=== PATIENT | male | born 1930 | race African-American/Black ===

== ENCOUNTER → 2016-03-19 | Day surgery (SDC) | payer MEDICARE ==
[2013-02-16 08:05] VITALS: BMI 25.0
[~2016-03-19] MED LIST: FENTANYL 100 MCG/2 ML VIAL IV ONE; FENTANYL 100 MCG/2 ML VIAL IV PRN; HYDROmorphone 1 MG INJECTION IV PRN; LABETALOL 20 MG/4 ML SYRINGE IV PRN; LIDOCAINE 100 MG PFS IV ONE; LIDOCAINE 2% JELLY UROJET ONE; Levofloxacin 500 mg/100 ml D5W 500 MG/100 ML RTU IV ONE; MEPERIDINE 25 MG/ML TUBEX IV PRN; ONDANSETRON HCL 4 MG ODT TAB PO PRN; ONDANSETRON HCL 4 MG/2 ML VIAL IV PRN; PROPOFOL 200 MG/20 ML VIAL IV ONE; hydrALAZINE 20 MG/ML VIAL IV PRN
--- NOTE | 2016-03-19 07:56 | HIM.ANES ---
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) Consented Procedure: CYSTOSCOPY,CUP BLADDER BIOPSY FULGERATION - Focused Review of Systems Cardiac History: Yes: Hx Hypertension, Hx Cardiac Catheterization, Hx Cardiac Disorders, Hx Abnormal Cholesterol/Hyperlipidemia No: Hx Angina HEENT: Yes: Removable Dental Work, Cataracts (S/P REMOVAL), Cataract Removal, Hx Vision Problem (WEARS GLASSES), Other HEENT Problems Hx Other HEENT Surgery: T&A Respiratory: Yes: Hx Snoring No: Hx Asthma, Hx Emphysema Gastrointestinal: Yes: Hx Gastroesophageal Reflux Disease, Hx Gastrointestinal Disorders, Hx Diverticulosis (per colonoscopy), Hx Colonoscopy (2008) Genitourinary: Yes: Hx Renal Disease (STAGE 3 CKD) Neurological/Musculoskeletal: No: HX Cerebrovascular Accident, Hx Transient Ischemic Attacks (TIA), Hx Neurological Disorders Psychological: Yes Hx Depression, No Hx Mental/Emotional Disorders Endocrine: Yes: Hx Diet Controlled Diabetes (09/2015 HGB A1C 6.9) Blood/Autoimmune: Yes: Hx Anemia (IRON DEFICIENCY) No: Hx AIDS, Hx Hepatitis (type) Smoking Status: Former smoker Surgical History: Yes: T&A Other Surgical History: T&A FEM POP hemorrhoidectomy 1975 CYSTOSCOPY BLADDER BX 07/10/2014 - Focused Physical Exam NPO since: 03/18/16 1730 Mallampati: Class II Thyromental Distance: Greater than 3 Neck: Full Range of Motion Dental: Edentulous Cardiovascular/Chest: Normal Respiratory: Lungs clear Any problems with anesthesia, including nausea and vomiting?: No Any relatives with a history of Malignant Hyperthermia?: No Does patient have a history of Malignant Hyperthermia?: No Beta Luis given (if appropriate): N/A Does the patient have a history of Motion Sickness-: No Other: Allergies Allergy/AdvReac Type Severity Reaction Status Date / Time No Known Allergies Allergy Verified 03/19/16 07:34 Home Medications Medication Instructions Recorded Last Taken Type Diltiazem HCl [Cardizem Cd] 240 mg PO DAILY 02/14/13 03/19/16 05:30 History Lisinopril [Prinivil] 40 mg PO DAILY 02/14/13 03/19/16 05:30 History Finasteride 5 mg PO DAILY 09/04/13 03/18/16 08:00 History Tamsulosin HCl [Flomax] 0.4 mg PO DAILY 09/04/13 03/18/16 19:00 History Aspirin [Aspirin EC] 81 mg PO DAILY 07/09/14 03/12/16 History Repaglinide 0.5 mg PO DAILY 07/09/14 03/18/16 08:00 History Iron [Niferex-150] 150 mg PO BID 01/29/15 03/18/16 20:00 History Rosuvastatin Calcium [Crestor] 20 mg PO DAILY 03/16/16 03/18/16 08:00 History Cilostazol [Pletal] 100 mg PO BID 03/17/16 03/12/16 History Height and Weight Patient's height 5 ft 6 in Patient's weight 70.307 kg BMI 25.0 Vital Signs Temperature 97.4 F L 03/19/16 07:16 Pulse Rate 61 03/19/16 07:16 Respiratory Rate 18 03/19/16 07:16 Blood Pressure 149/60 03/19/16 07:16 Pulse Oxygen Saturation 99 03/19/16 07:16 METS - Level of Activity: Climbing stairs(1 flight),walking level ground, running short distance - Anesthetic Plan Anesthesia Type: General ASA Class: 3 -: I have examined this patient and reviewed the medical record. The patient has been assessed prior to anesthesia. Risks and benefits of anesthesia and anesthetic technique options have been discussed and all questions answered. The patient accepts the risk and desires me to proceed with the planned anesthetic.
[2016-03-19 09:25] VITALS: TEMP 97.1
--- NOTE | 2016-03-19 09:27 | HIMOPRPT ---
PROCEDURE: DATE OF PROCEDURE: 03/19/16 PREOPERATIVE DIAGNOSIS: Recurrent superficial bladder tumor . POSTOPERATIVE DIAGNOSIS: Recurrent superficial bladder tumor . PROCEDURE PERFORMED: Cystoscopy and fulguration of bladder lesions. SURGEON: Juan Luis Sanabria MD ANESTHESIA USED: IV sedation /MAC. INDICATION FOR PROCEDURE: The patient is a 85 BLACK M with a history of recurrent superficial bladder tumor. Surveillance cystoscopy revealed recurrence. . The patient is brought in now for cystoscopy and fulguration of bladder lesions . PROCEDURE IN DETAIL: The patient was brought into the operating room, placed on the table in the supine position. After adequate IV sedation/MAC anesthesia was achieved, the patient was carefully placed in dorsal lithotomy and the perineum prepped and draped in sterile fashion for the performance of cystoscopy. 2% xylocaine jelly was instilled in the urethra for local anesthesia. Initially, the 23-Hungarian scope was passed under direct vision into the bladder. Inspection of the bladder revealed normal ureteral orifices and trigone. No gross lesions were noted. After the bladder was inspected with 30 and 70 degree lenses , small papillary lesions were noted in the posterior wall and at the bladder neck. These were small projections on the mucosa. Bugbee electrode was placed and all the lesions were fulgurated. There were approximately 3 in the posterior wall and then 2 at the bladder neck at the 5 o' clock and 11 o'clock positions. An additional lesion was noted on the anterior wall and this was fulgurated. When we were done, there was good hemostasis. No other lesions or suspicious areas were noted. Bladder was intact. The bladder was then filled. The cystoscope was removed. A 18-Hungarian Breaux was placed to temporarily drain the bladder. The patient tolerated all this well. The patient was then awakened and taken to the recovery room in good condition.
[2016-03-19 10:58] VITALS: PULSE 71
[2016-03-19 15:40] VITALS: BP 149/60
--- NOTE | 2016-03-19 15:40 | SC.ANESPOS ---
Post-Anesthesia Note LOC: Fully Awake Post-Anesthesia Assessment: Awake, Returned to Baseline, Hemodynamically Stable , Pain Control Adequate Phase I & II Recovery Complete: Yes Apparent Anesthesia Complication: No : N - Vital Signs Blood Pressure: 149/60 Pulse: 71 Resp Rate: 18 O2 Sat: 98 Temp: 97.1 F
== END ==
LOC: SDC 06:52
PROVIDERS: ATTEND Urology
PROC: 0T5B8ZZ Destruction of Bladder, Via Natural or Artificial Opening Endoscopic (ICD-10-PCS; principal; 2016-03-19 08:00)
DX: C67.9 Malignant neoplasm of bladder, unspecified (principal); I12.9 Hypertensive chronic kidney disease with stage 1 through stage 4 chronic kidney disease, or unspecified chronic kidney disease; N18.3 Chronic kidney disease, stage 3 (moderate); I25.10 Atherosclerotic heart disease of native coronary artery without angina pectoris; E11.9 Type 2 diabetes mellitus without complications; E78.5 Hyperlipidemia, unspecified; K21.9 Gastro-esophageal reflux disease without esophagitis; F32.9 Major depressive disorder, single episode, unspecified; Z87.891 Personal history of nicotine dependence; Z79.84 Long term (current) use of oral hypoglycemic drugs; Z79.899 Other long term (current) drug therapy
CPT/HCPCS: 52234; 82962; A9270; J1956; J2001; J3010; J3490